=== PATIENT | female | born 1945 | race Caucasian/White ===

== ENCOUNTER 2016-10-01 10:57 | Emergency (ER) | payer OTHER, BC ==
[~2016-10-01] VITALS: Ht 167.6 cm; Wt 80.0 kg
[~2016-10-01 10:57] MED LIST: ACID REDUCER 1150 MG PO; ACIDOPHILUS PROB1 MG PO; ALEVE PO; ALEVE220 M2 PO; AMLODIPINE BESYL5 MG PO; AURALGAN14.8 ML BOTH EARS; BENAZEPRIL HCL10 MG PO; CIPROFLOXACIN500 M1 PO; DICYCLOMINE HCL20 MG PO; DULCOLAX5 MG PO; HYDROCODON-ACE1 EAC8 PO; METOCLOPRAMIDE10 MG PO; METRONIDAZOLE500 MG PO; MIRALAX255 GM PO; PAROXETINE HCL20 MG PO; PAROXETINE HCL25 MG PO; SULFASALAZINE500 MG PO; TRAMADOL HCL50 MG PO; VITAMIN D-32000 UNI1 PO; ZOCOR10 MG PO; ZOCOR20 MG PO; [UNRECOGNIZED DRUG - OTHER] PO
[2016-10-01 12:06] LABS: HEMATOCRIT 39.8 % (36.0-46.0); MCH 32.1 PG (29.0-34.0); MCHC 34.7 G/DL (30.0-36.0); MCV 92.6 FL (83-99); MEAN PLAT.VOLUME 9.4 uM^3 (9.5-12.4); PLATELET COUNT 167 K/uL (156-360); RBC DIS.WIDTH-CV 12.4 % (11.8-14.6); RBC DIS.WIDTH-SD 40.9 % (39-53); WHITE BLOOD COUNT 5.3 K/uL (4.1-10.2)
[2016-10-01 12:17] LABS: CHLORIDE 108 mEq/L (99-109); POTASSIUM 3.9 mEq/L (3.7-5.4); SODIUM 144 mEq/L (136-147)
[2016-10-01 12:19] LABS: GLUCOSE 102 mg/dL (70-99)
[2016-10-01 12:20] LABS: ANION GAP 11 MEQ/L (2-14)
[2016-10-01 12:23] LABS: GFR ESTIMATE (CALCULATED) > 59 mL/min/
[2016-10-01 12:24] LABS: UREA NITROGEN (BUN) 14 mg/dL (9-23)
[2016-10-01 12:27] LABS: TROP-I INTERPRETATION NEGATIVE; TROPONIN-I < 0.01 ng/mL (0.0-0.30)
[2016-10-01] MEDS ORDERED: PREDNISONE50 MG PO (13:31)
[2016-10-01] MEDS ORDERED: PHENERGAN-CODE120 ML PO (13:31)
[2016-10-01 13:44] VITALS: BP 137/82
== END 2016-10-01 13:53 | disposition home or self-care (01) ==
LOC: EME 10:57
DX: J20.9 Acute bronchitis, unspecified (principal); E78.5 Hyperlipidemia, unspecified; I10 Essential (primary) hypertension; Z86.73 Personal history of transient ischemic attack (TIA), and cerebral infarction without residual deficits; Z88.6 Allergy status to analgesic agent; Z88.0 Allergy status to penicillin
CPT/HCPCS: 71020; 80048; 84484; 85027; 93005; 94664; 99281; 99284; J7512

== ENCOUNTER 2017-03-08 16:40 | Emergency (ER) | payer OTHER, BC ==
[~2017-03-08] VITALS: Ht 167.6 cm; Wt 80.2 kg
[~2017-03-08 16:40] MED LIST changes: +PHENERGAN-CODE120 ML PO; +PREDNISONE50 MG PO
[2017-03-08 17:48] LABS: ADD MIUA? YES; BILIRUBIN NEGATIVE; BLOOD NEGATIVE; COLOR YELLOW ((YELLOW)); GLUCOSE (STRIP) NEGATIVE; KETONES NEGATIVE; LEUKOCYTES MODERATE; NITRITE NEGATIVE; PROTEIN (STRIP) NEGATIVE; UROBILINOGEN 0.2 MG/DL (0.2-1.0)
[2017-03-08 17:55] LABS: EOSINOPHIL (%) 0.6 % (0-5); HEMATOCRIT 42.4 % (36.0-46.0); IMMATURE GRANULOCYTE (%) 0.2 % (0.0-0.7); INSTRUMENT ABS NEUTROPHIL CT 3.8 K/uL; MCH 31.6 PG (29.0-34.0); MEAN PLAT.VOLUME 9.2 uM^3 (9.5-12.4); MONOCYTE (%) 7.6 % (3-12); MONOCYTE COUNT 0.5 K/uL (0-0.8); NEUTROPHIL (%) 60.2 % (45-76); NEUTROPHIL COUNT 3.8 K/uL (1.8-6.4); PLATELET COUNT 206 K/uL (156-360); RBC DIS.WIDTH-CV 11.9 % (11.8-14.6); RBC DIS.WIDTH-SD 40.8 % (39-53); RED BLOOD COUNT 4.56 M/uL (3.80-5.20); WHITE BLOOD COUNT 6.3 K/uL (4.1-10.2)
[2017-03-08 18:07] LABS: BACTERIA 3+ /HPF; EPITHELIAL CELLS NONE SEEN /HPF; MUCUS TRACE /LPF; RED BLOOD CELLS 0-5 /HPF (0-5); UCUL ADDED? YES
[2017-03-08 18:09] LABS: CHLORIDE 107 mEq/L (99-109); SODIUM 141 mEq/L (136-147)
[2017-03-08 18:11] LABS: GLUCOSE 118 mg/dL (70-99)
[2017-03-08 18:12] LABS: ANION GAP 10 MEQ/L (2-14)
[2017-03-08 18:15] LABS: GFR ESTIMATE (CALCULATED) > 59 mL/min/; UREA NITROGEN (BUN) 15 mg/dL (9-23)
[2017-03-08] MEDS ORDERED: CIPRO500 MG PO (19:00)
[2017-03-08 19:15] VITALS: BP 153/77
== END 2017-03-08 19:15 | disposition home or self-care (01) ==
LOC: EME 16:40
PROVIDERS: Emergency Medicine
DX: N39.0 Urinary tract infection, site not specified (principal); I10 Essential (primary) hypertension; K21.9 Gastro-esophageal reflux disease without esophagitis; Z86.73 Personal history of transient ischemic attack (TIA), and cerebral infarction without residual deficits; Z87.442 Personal history of urinary calculi
CPT/HCPCS: 80048; 81003; 85025; 87077; 87086; 87186; 93005; 99281; 99284